=== PATIENT | female | born 1970 ===

== ENCOUNTER 2024-03-31 08:10 | Emergency (ER) | payer BC, SELFPAY ==
[2024-03-31 08:30] VITALS: BP 111/82; PULSE 112; RESP 18; TEMP 36.3; O2SAT 94
--- NOTE | 2024-03-31 08:32 | ED_ITS ---
HPI - URI/Sore Throat General Chief Complaint: Upper Respiratory Infection Stated Complaint: Fever/Congestion Time Seen by Provider: 03/31/24 08:28 Source: patient and RN notes reviewed Mode of arrival: ambulatory Limitations: no limitations History of Present Illness HPI Narrative: Patient presents today complaining of a 3 day history of cough, fever up to 102, body aches, fatigue. Denies shortness of breath, rhinorrhea, sore throat, GI symptoms. She has tried Advil and cough syrup without much relief. No history of asthma or COPD. She is a nonsmoker. Denies any known sick contacts. Related Data Home Medications ?Medication ?Instructions ?Recorded ?Confirmed ?Last Taken ?Type estradiol 0.05 mg/24 hr weekly 1 patch transdermal WEEKLY 03/31/24 03/31/24 Unknown History transdermal patch fexofenadine 180 mg tablet 180 mg PO Q24H 03/31/24 03/31/24 Unknown History (Allergy Relief (fexofenadine)) fluticasone propionate 50 1 spray intranasal Q12H 03/31/24 03/31/24 Unknown History mcg/actuation nasal spray,suspension omeprazole 20 mg capsule,delayed 20 mg PO DAILY PRN acid reflux 03/31/24 03/31/24 Unknown History release progesterone micronized 100 mg 100 mg PO QPM 03/31/24 03/31/24 Unknown History capsule Allergies Allergy/AdvReac Type Severity Reaction Status Date / Time No Known Allergies Allergy Verified 03/31/24 08:20 Review of Systems Review of Systems: CONSTITUTIONAL: + body aches, fever, fatigue EYES: Denies visual changes, redness, or discharge. ENT: Denies rhinorrhea, congestion, sore throat, or otalgia. CARDIOVASCULAR: Denies chest pain, palpitations, or edema. RESPIRATORY: Denies dyspnea.+ cough GASTROINTESTINAL: Denies abdominal pain, nausea, vomiting, or diarrhea. GENITOURINARY: Denies dysuria or hematuria. SKIN: Denies rash, itching, or wounds. MUSCULOSKELETAL: Denies back pain, joint pain, or myalgia. NEUROLOGIC: Denies headache, numbness, tingling, or weakness. PSYCH: Denies depression or anxiety. PMFSH Comments At time of signature, I have reviewed and agree with nursing past medical, surgical, social and family history unless otherwise noted. Please see nursing chart for further information. There is no relevant family history pertinent to the presenting complaint Exam Narrative: GENERAL: Ill-appearing, well-nourished, and in no acute distress. HEAD: Normocephalic, atraumatic. EYES: EOMI. No redness or drainage. Conjunctivae normal. ENT: Mucous membranes pink and moist. Nares congested. No rhinorrhea. TMs normal bilaterally. Throat normal. Uvula midline. NECK: Normal AROM. Supple. No lymphadenopathy. CHEST: No respiratory distress. Clear to auscultation. Harsh cough noted. HEART: Regular rhythm. Tachycardia. No murmur appreciated. EXTREMITIES: Normal range of motion. No edema. SKIN: Warm, dry, no rash. Capillary refill normal. Normal skin turgor. NEURO: No focal deficits. Alert and oriented x3. Gait steady. PSYCH: Normal affect. No signs of depression or anxiety. Course Course Level of Care: Express Care Visit Vital Signs Vital signs: Vital Signs Temperature 97.3 F L 03/31/24 08:30 Pulse Rate 112 H 03/31/24 08:30 Respiratory Rate 18 03/31/24 08:30 Blood Pressure 111/82 03/31/24 08:30 Pulse Oximetry 94 03/31/24 08:30 Oxygen Delivery Room Air 03/31/24 08:30 Temperature 97.3 F L 03/31/24 08:30 Pulse Rate 112 H 03/31/24 08:30 Respiratory Rate 18 03/31/24 08:30 Blood Pressure 111/82 03/31/24 08:30 Pulse Oximetry 94 03/31/24 08:30 Oxygen Delivery Room Air 03/31/24 08:30 Reviewed MDM - URI/Sore Throat MDM Narrative Medical decision making narrative: Influenza a positive. Patient is out of the window for Tamiflu. Discussed [id number] medication use and duration of illness. She declines prescription cough medicine. Anticipatory guidance given. ED precautions given. Differential Diagnosis Differential diagnosis: Likely upper respiratory infection, viral infection, bronchitis, influenza and other (COVID-19) Lab Data Attestation: I reviewed the patient's lab results. Lab results narrative: Influenza a positive. COVID negative Critical Care Time Critical Care Time Critical Care Time: No Discharge Plan Discharge Clinical Impression: Influenza A Patient Disposition: Home, Self-Care Condition: Stable Instructions: Influenza (DC) Additional Instructions: You have tested positive for influenza A. Your COVID-19 test is negative today. Virus symptoms can last for up to 7-10days. Take Tylenol or ibuprofen for pain or fever. Take Mucinex to help break up any chest congestion. Rest and stay hydrated. Follow up with your PCP in 7 days if symptoms are not improving. Go to the ER immediately if you develop shortness of breath, difficulty swallowing, or any other concerning symptoms. Your blood pressure was elevated above 120/80 today at Urgent Care. This puts you above the threshold for follow up. Please schedule a followup visit with your personal physician as soon as possible, for further evaluation and treatment. Even blood pressure exceeding 120/80 may indicate pre-hypertension. Patient Language: Guyanese Prescriptions: No Action estradiol 0.05 mg/24 hr patch weekly 1 patch transdermal WEEKLY fexofenadine [Allergy Relief (fexofenadine)] 180 mg tablet 180 mg PO Q24H fluticasone propionate 50 mcg/actuation spray,suspension 1 spray INTRANASAL Q12H progesterone micronized 100 mg capsule 100 mg PO QPM omeprazole 20 mg capsule,delayed release(DR/EC) 20 mg PO DAILY PRN (Reason: acid reflux) Follow-up/Referrals: PHYSICIAN,[employer] [Primary Care Provider] - Time of Disposition: 08:46
[2024-03-31 08:45] LABS: EDCOVIDSCREEN Negative (Negative); EDINFLUASCREEN Positive (Negative); EDINFLUBSCREEN Negative (Negative)
== END 2024-03-31 08:51 | disposition home or self-care (01) ==
PROVIDERS: Emergency Provider Nurse Practitioner
DX: J10.1 Influenza due to other identified influenza virus with other respiratory manifestations (principal); Z20.822 Contact with and (suspected) exposure to COVID-19
CPT/HCPCS: 87426; 87804; 99202; G0463